=== PATIENT | female | born 1995 | race Caucasian/White ===

== ENCOUNTER 2022-08-13 20:08 | Emergency (ER) | payer OTHER ==
[~2022-08-13] VITALS: Ht 147.3 cm; Wt 74.8 kg
[2022-08-13 20:20] VITALS: BP_SYST 109
--- NOTE | 2022-08-13 20:31 | NUR ---
PPatient to ER bed HB1 to gown for evaluation. Side rails up. Report given to BOZENA VAZQUEZ. PT TACHYCARDIC AT 145 AND FEVER OF 101.2. MADE AWARE.
--- NOTE | 2022-08-13 20:32 | NUR ---
Patient came in c/o nausea, vomiting and diarrhea that started on Friday. Denied any fevers or chills. Just got back from a recent travel. Denied any respiratory distress at this time. Bed placed in lowest position with side rails up. Instructed to notify ED staff for any changes in condition or worsening of symptoms while waiting to be seen by a provider. Patient verbalized understanding.
--- NOTE | 2022-08-13 20:36 | NUR ---
Dr. MOE at bedside examining the patient.
[2022-08-13] MEDS ORDERED: NACL 0.9% 2,000 ML IV ONE (20:45)
[2022-08-13] MEDS ORDERED: metroNIDAZOLE 500 mg/NS 100 ML IV ONE (20:45)
[2022-08-13 21:09] LABS: HEMOGLOBIN 13.5 g/dL (12.0-16.0); RED CELL DISTRIBUTION WIDTH 12.9 % (9.0-15.0)
[2022-08-13 21:16] LABS: ALBUMIN 3.5 g/dL (3.4-4.8); BASOPHILS % (AUTO) 0.3 % (0.0-2.0); CALCIUM 8.2 mg/dL (8.4-11.0); CREATININE 0.71 mg/dL (0.55-1.30); HEMATOCRIT 39.6 % (36-48); LYMPHOCYTES # (AUTO) 0.8 K/uL (1.0-5.5); LYMPHOCYTES % (AUTO) 5.7 % (20.5-51.5); MEAN CORPUSCULAR HEMOGLOBIN 30 pg (27-31); MEAN CORPUSCULAR HGB CONC 34 % (32-36); MEAN CORPUSCULAR VOLUME 89 fL (79.0-98.0); MONOCYTES # (AUTO) 1.1 K/uL (0.0-1.0); MONOCYTES % (AUTO) 7.8 % (1.7-9.3); NEUTROPHILS # (AUTO) 11.8 K/uL (1.8-7.7); NEUTROPHILS % (AUTO) 86.2 % (40.0-70.0); PLATELET COUNT (AUTO) 257 K/uL (130-430); RED BLOOD CELL COUNT(AUTO) 4.46 MIL/uL (4.2-6.2); TOTAL BILIRUBIN 0.4 mg/dL (0.0-1.0); WHITE BLOOD COUNT (AUTO) 13.7 K/uL (4.8-10.8)
[2022-08-13] MEDS ORDERED: SULF1TAB48 PO (21:40)
[2022-08-13 23:18] VITALS: BP_SYST 122
--- NOTE | 2022-08-13 23:19 | NUR ---
Patient given written and verbal discharge instructions and verbalizes understanding. ER MD discussed with patient the results and treatment provided. Patient in stable condition. ID arm band removed. IV catheter removed intact and dressing applied, no active bleeding. Rx of BACTRIM given. Patient educated on pain management and to follow up with PMD. Pain Scale 0/10. Opportunity for questions provided and answered. Medication side effect fact sheet provided.
== END 2022-08-13 23:18 | disposition home or self-care (01) ==
LOC: SED 20:08
DX: R19.7 Diarrhea, unspecified (principal); R10.84 Generalized abdominal pain; R11.0 Nausea; Z79.899 Other long term (current) drug therapy
CPT/HCPCS: 99284; 96365; 80053; 85025; 87040; 36415; 83605; J3490